=== PATIENT | female | born 2000 | race African-American/Black ===

== ENCOUNTER 2020-07-03 18:23 | Emergency (ER) | payer SELFPAY ==
--- NOTE | 2020-07-03 19:25 | ER Document Report ---
ED Medical Screen (RME) - General Chief Complaint: Abdominal Pain Stated Complaint: ABDOMINAL PAIN Time Seen by Provider: 07/03/20 18:59 Notes: Patient presents complaining of lower abdominal pain with vaginal bleeding that started 4 days ago. Patient states abdominal pain improved and then started again today. Patient does report some nausea. Patient denies any urinary symptoms. Patient denies any lightheadedness or dizziness. Patient without any significant past medical history. I have greeted and performed a rapid initial assessment of this patient. A comprehensive ED assessment and evaluation of the patient, analysis of test results and completion of the medical decision making process will be conducted by additional ED providers. Physical Exam - Vital signs Vitals: Temp Pulse Resp BP Pulse Ox 98.6 F 78 18 147/89 H 99 07/03/20 18:32 07/03/20 18:32 07/03/20 18:32 07/03/20 18:32 07/03/20 18:32 - Abdominal Tenderness: Tender - Lower pelvic, exam limited as patient is in chair Course - Vital Signs Vital signs: Temp Pulse Resp BP Pulse Ox 98.6 F 78 18 147/89 H 99 07/03/20 18:32 07/03/20 18:32 07/03/20 18:32 07/03/20 18:32 07/03/20 18:32
[2020-07-03 19:40] LABS: ABSOLUTE BASOPHILS # (AUTO) 0.1 10^3/uL (0.0-0.2); ABSOLUTE EOSINOPHILS # (AUTO) 0.2 10^3/uL (0.0-0.6); ABSOLUTE LYMPHOCYTES (AUTO) 3.1 10^3/uL (0.5-4.7); ABSOLUTE MONOCYTES (AUTO) 0.5 10^3/uL (0.1-1.4); ABSOLUTE NEUT (AUTO) 6.7 10^3/uL (1.7-8.2); BASOPHILS % (AUTO) 0.6 % (0-2); HEMATOCRIT 37.3 % (36.0-47.0); HEMOGLOBIN 12.5 g/dL (12.0-15.5); LYMPHOCYTES % (AUTO) 29.4 % (13-45); MEAN CORPUSCULAR HEMOGLOBIN 27.2 pg (27.0-33.4); MEAN CORPUSCULAR HGB CONC 33.5 g/dL (32.0-36.0); MEAN CORPUSCULAR VOLUME 81 fl (80-97); MONOCYTES % (AUTO) 4.7 % (3-13); PLATELET COUNT 325 10^3/uL (150-450); RED BLOOD COUNT 4.58 10^6/uL (3.72-5.28); RED CELL DISTRIBUTION WIDTH 14.8 % (11.5-14.0); SEGMENTED NEUTROPHILS % (AUTO) 63.3 % (42-78); TOTAL CELLS COUNTED % (AUTO) 100 %; WHITE BLOOD COUNT 10.6 10^3/uL (4.0-10.5)
[2020-07-03 19:47] LABS: APPEARANCE,URINE SLIGHTLY-CLOUDY; BILIRUBIN,URINE NEGATIVE (NEGATIVE); COLOR,URINE YELLOW; GLUCOSE, URINE NEGATIVE (NEGATIVE); KETONES,URINE NEGATIVE (NEGATIVE); LEUKOCYTE ESTERASE,URINE MODERATE (NEGATIVE); NITRITE,URINE NEGATIVE (NEGATIVE); PROTEIN,URINE 100 mg/dL (NEGATIVE); URINE SPECIFIC GRAVITY 1.029
[2020-07-03 19:58] LABS: ANION GAP 6 (5-19); BLOOD UREA NITROGEN 10 mg/dL (7-20); CALCIUM 9.7 mg/dL (8.4-10.2); CARBON DIOXIDE 31 mmol/L (22-30); CHLORIDE 102 mmol/L (98-107); GLUCOSE 112 mg/dL (75-110); POTASSIUM 4.5 mmol/L (3.6-5.0)
--- NOTE | 2020-07-03 22:31 | RADIOLOGY REPORT (SQ) ---
Ultrasound pelvis transvaginal on 07/03/2020 at 9:19 PM CLINICAL INDICATION: Pelvic pain COMPARISON: None FINDINGS: Multiple sonographic images are obtained throughout the pelvis by transvaginal approach, both transverse and sagittal images are obtained. Uterus measures approximately 8.6 x 4.4 x 4.7 cm. Endometrial stripe measures 2 mm which is within normal limits. Uterine myometrium appears homogeneous. Right ovary measures approximately 3.1 x 3.6 x 2.0 cm. Flow is demonstrated in the right ovary. The left ovary measures approximately 2.6 x 2.0 x 1.6 cm. Flow is demonstrated in the left ovary. No adnexal mass or fluid collection is noted. No free fluid is noted. IMPRESSION: Unremarkable exam.
[2020-07-03 22:46] LABS: CHLAM PCR NOT DETECTED (NOT DETECT)
--- NOTE | 2020-07-04 00:27 | ER Document Report ---
ED GI/ - General Chief Complaint: Vaginal Bleeding Stated Complaint: ABDOMINAL PAIN Time Seen by Provider: 07/03/20 18:59 Mode of Arrival: Ambulatory Information source: Patient Notes: ED Medical Screen ([facility]) - General Chief Complaint: Abdominal Pain Stated Complaint: ABDOMINAL PAIN Time Seen by Provider: 07/03/20 18:59 Notes: Patient presents complaining of lower abdominal pain with vaginal bleeding that started 4 days ago. Patient states abdominal pain improved and then started again today. Patient does report some nausea. Patient denies any urinary symptoms. Patient denies any lightheadedness or dizziness. Patient without any significant past medical history. MY NOTES 20-year-old female arrives with chief complaint of lower abdominal pain with vaginal bleeding that began 4 days ago. Ultrasound is negative. Urinalysis po sitive for UTI. Patient has some nausea today. Her chemistries are normal. Her chlamydia and GC are negative. Patient reports she had her left arm control device removed on 17 June and now advises she has diffuse lower abdominal pain with vaginal bleeding. She reported for the 2 years that she had the implantable device she continued to have vaginal bleeding. In the past she has been on control pills to help control vaginal bleeding as well but they gave her a lot of nausea. She reports she would rather have some liquid type medicines for pain. She advises her mother had a HEATHER around age 41. She does not know whether she had heavy bleeding with her periods. Her sisters have no gynecological problem like she has. - Related Data Allergies/Adverse Reactions: No Known Allergies Allergy (Verified 07/03/20 20:38) Past Medical History - General Information source: Patient - Social History Smoking Status: Never Smoker Cigarette use (# per day): No Chew tobacco use (# tins/day): No Smoking Education Provided: No Frequency of alcohol use: None Lives with: Family Family History: Reviewed & Not Pertinent Patient has suicidal ideation: No Patient has homicidal ideation: No Review of Systems - Review of Systems Constitutional: No symptoms reported EENT: No symptoms reported Cardiovascular: No symptoms reported Respiratory: No symptoms reported Gastrointestinal: No symptoms reported Genitourinary: See HPI, Hematuria Female Genitourinary: See HPI, Vaginal bleeding Musculoskeletal: No symptoms reported Skin: No symptoms reported Hematologic/Lymphatic: No symptoms reported Neurological/Psychological: No symptoms reported Physical Exam - Vital signs Vitals: Temp Pulse Resp BP Pulse Ox 98.6 F 78 18 147/89 H 99 07/03/20 18:32 07/03/20 18:32 07/03/20 18:32 07/03/20 18:32 07/03/20 18:32 Interpretation: Normal - General General appearance: Appears well, Alert - HEENT Head: Normocephalic, Atraumatic Eyes: Normal Pupils: PERRL - Respiratory Respiratory status: No respiratory distress Chest status: Nontender Breath sounds: Normal Chest palpation: Normal - Cardiovascular Rhythm: Regular Heart sounds: Normal auscultation Murmur: No - Abdominal Inspection: Normal - For Distension: No distension Bowel sounds: Normal Tenderness: Tender - Lower quadrant abdominal pain and suprapubic pain on palpation Organomegaly: No organomegaly - Rectal Hemorrhoids: Other - deferred - Genitourinary Bimanuel exam: Other - deferred - Back Back: Normal, Nontender - Extremities General upper extremity: Normal inspection, Nontender, Normal color, Normal ROM, Normal temperature General lower extremity: Normal inspection, Nontender, Normal color, Normal ROM, Normal temperature, Normal weight bearing. No: Ronny's sign - Neurological Neuro grossly intact: Yes Cognition: Normal Orientation: AAOx4 [place] Coma Scale Eye Opening: Spontaneous [place] Coma Scale Verbal: Oriented Jm Coma Scale Motor: Obeys Commands [place] Coma Scale Total: 15 Speech: Normal Motor strength normal: LUE, RUE, LLE, RLE Sensory: Normal - Psychological Associated symptoms: Normal affect, Normal mood - Skin Skin Temperature: Warm Skin Moisture: Dry Skin Color: Normal Course - Vital Signs Vital signs: Temp Pulse Resp BP Pulse Ox 98.6 F 78 18 147/89 H 99 07/03/20 18:32 07/03/20 18:32 07/03/20 18:32 07/03/20 18:32 07/03/20 18:32 - Laboratory Results Result Diagrams: 07/03/20 19:19 07/03/20 19:19 Laboratory Results Interpreted: 07/03/20 07/03/20 07/03/20 19:19 19:19 19:19 WBC 10.6 H RDW 14.8 H Carbon Dioxide 31 H Glucose 112 H Urine Protein 100 H Urine Blood LARGE H Urine Urobilinogen 2.0 H Ur Leukocyte Esterase MODERATE H Critical Laboratory Results Reviewed: Yes Attending or Supervising Physician who Reviewed Labs: BAREFOOT,RENATE A JR - Radiology Results Critical Radiology Results Reviewed: Yes Attending or Supervising Physician who Reviewed Radiology: RENATE VELEZ JR Discharge - Discharge Clinical Impression: Vaginal bleeding Abdominal pain Qualifiers: Abdominal location: unspecified location Qualified Code(s): R10.9 - Unspecified abdominal pain Condition: Stable Disposition: HOME, SELF-CARE Instructions: Abdominal Pain ([facility]) Additional Instructions: Follow-up with [facility] doctor of choice return to ER as needed take medicines as directed encourage fluids Prescriptions: Amoxicillin/Potassium Clav [Amox-Clav 400-57 mg/5 ml Susp] 800 mg PO BID 5 Days #100 ml Tranexamic Acid [Lysteda] 650 mg PO DAILY #7 tablet Forms: Return to Work
[2020-07-04] MEDS ORDERED: AMOXICILLIN TRYHYD 250 MG/5 ML SUSP 80 ML (ER DISP) PO ONE (00:32)
[2020-07-04] MEDS ORDERED: IBUPROFEN SUSP 100 MG/5 ML ORAL SYRINGE PO ONE (00:32)
[2020-07-04 01:01] VITALS: BP 114/69
== END 2020-07-04 01:03 | disposition home or self-care (01) ==
LOC: ER 18:23
DX: N39.0 Urinary tract infection, site not specified (principal); R31.9 Hematuria, unspecified; N93.9 Abnormal uterine and vaginal bleeding, unspecified; R10.2 Pelvic and perineal pain; R10.32 Left lower quadrant pain; R11.0 Nausea; Z98.890 Other specified postprocedural states
CPT/HCPCS: 36415; 76830; 80048; 81001; 81025; 85025; 87491; 87591; 93976; 99284